=== PATIENT | male | born 1980 | race Two or more races ===

== ENCOUNTER 2020-12-07 02:01 | Emergency (ER) | payer MEDICAID, OTHER ==
[~2020-12-07] VITALS: Ht 167.6 cm; Wt 83.9 kg
--- NOTE | 2020-12-07 02:14 | NUR ---
BIBRA 89 FROM HOME FOR C/O NASAL CONGESTION, PAINFULL RSPIRATION AND TINGLING SENSATION ON BLE AND BUE. + FOR COVID ON 11/03 AND - 10 DAYS AGO; PT [id number], DENIES ANY SOB, NOT IN ACUTE DISTRESS, VSS. PENDING ER PROVIDER FELIPA
--- NOTE | 2020-12-07 02:51 | NUR ---
DR HARRISON ASSESSING THE PT
[2020-12-07] MEDS ORDERED: LORAZEPAM 1 MG TABLET PO ONE (03:30)
[2020-12-07] MEDS ORDERED: KETOROLAC TROMETHAMINE INJ 30 MG/ML VIAL IM ONE (03:30)
[2020-12-07] MEDS ORDERED: KETOROLAC TROMETHAMINE 15 MG/ML VIAL ONE (03:34)
[2020-12-07] MEDS ORDERED: LORAZEPAM 0.5 MG TABLET ONE (03:35)
[2020-12-07 03:43] LABS: BASOPHILS % (AUTO) 0.2 % (0.0-2.0); HEMATOCRIT 47 % (39-51); HEMOGLOBIN 15.9 g/dL (13.5-17.5); LYMPHOCYTES # (AUTO) 0.8 /CMM (0.8-4.8); LYMPHOCYTES % (AUTO) 5.8 % (20.0-44.0); MEAN CORPUSCULAR HGB CONC 34 g/dl (31.0-36.0); MEAN CORPUSCULAR VOLUME 86 fL (80-96); MONOCYTES # (AUTO) 0.1 /CMM (0.1-1.30); MONOCYTES % (AUTO) 0.9 % (2.0-12.0); NEUTROPHILS # (AUTO) 12.7 /CMM (1.8-8.9); NEUTROPHILS % (AUTO) 93.1 % (43.0-81.0); PLATELET COUNT (AUTO) 213 /CMM (150-450); RED BLOOD CELL COUNT(AUTO) 5.48 MIL/uL (4.5-6.0); WHITE BLOOD COUNT (AUTO) 13.6 K/uL (4.3-11.0)
[2020-12-07 04:11] LABS: CALCIUM, SERUM 9.6 mg/dL (8.5-10.1); CARBON DIOXIDE 27 mmol/L (21-32); CHLORIDE 103 mmol/L (98-107); CREATININE 0.9 mg/dL (0.6-1.3); GLUCOSE 131 mg/dL (74-106); POTASSIUM 4.2 mmol/L (3.5-5.1); SODIUM SERUM 140 mmol/L (136-145); UREA NITROGEN, BLOOD 16 mg/dL (7-18)
--- NOTE | 2020-12-07 04:48 | NUR ---
Patient discharged to home in stable condition. Written and verbal after care instructions given. Patient verbalizes understanding of instruction.IV removed. Catheter intact and site benign. Pressure and 4x4 applied to site. No bleeding noted.
[2020-12-07 04:51] VITALS: BP 122/90
== END 2020-12-07 04:52 | disposition home or self-care (01) ==
LOC: ER 02:05
DX: R07.89 Other chest pain (principal); J06.9 Acute upper respiratory infection, unspecified; F41.9 Anxiety disorder, unspecified; R20.2 Paresthesia of skin
CPT/HCPCS: 36415; 71045; 80048; 84484; 85025; 93005; 96374; 99285; J1885